=== PATIENT | male | born 1945 | race Caucasian/White ===

== ENCOUNTER → 2016-10-11 13:59 | Outpatient (CLI) | payer MEDICARE, OTHER ==
[2012-04-09 06:16] VITALS: BMI 27.8
== END | disposition home or self-care (01) ==
LOC: D.MRI 13:59
DX: M25.562 Pain in left knee (principal); M25.552 Pain in left hip

== ENCOUNTER 2020-01-22 01:11 | Inpatient (IN) | payer MEDICARE, OTHER ==
[~2020-01-22] VITALS: Ht 182.9 cm; Wt 99.1 kg
[2020-01-22] VITALS (21 sets, daily range): BP systolic 137–194; BP diastolic 64–94; BMI 28.6
[2020-01-22 02:05] LABS: BASOPHILS 0.1 % (0-2); EOSINOPHILS 0 % (0-7); HEMATOCRIT 37.9 % (42.0-54.0); HEMOGLOBIN 12.2 g/dL (13.5-17.5); IMMATURE GRANULOCYTES 2.1 % (0-5); LYMPHOCYTES 5.4 % (15-50); MCH 30.9 pg (26.0-34.0); MCHC 32.2 g/dL (31.0-37.0); MCV 95.9 fL (80.0-100.0); MONOCYTES 3.6 % (2-11); NEUTROPHILS 88.8 % (40-80); PLATELET COUNT 250 10x3/uL (130-400); RBC 3.95 10x6/uL (4.20-6.10); RDW 14.8 % (11.5-14.5); WBC 16.5 10x3/uL (4.8-10.8)
[2020-01-22 02:09] LABS: CALC OSMOLALITY 293 mosm/kg (275-300); CALCIUM 8.6 mg/dL (8.5-10.1); CARBON DIOXIDE 21.2 mmol/L (21.0-32.0); CHLORIDE - SERUM 103 mmol/L (98-107); CREATININE - SERUM 2.5 mg/dL (0.6-1.3); INR 0.89 (0.85-1.17); SODIUM 137 mmol/L (136-145); UREA NITROGEN 58 mg/dL (7-18); eGFR NON AFRICAN AMERICAN 27 mL/min (90-120)
[2020-01-22 02:12] LABS: GLUCOSE 162 mg/dL (74-106)
[2020-01-22 02:18] LABS: ALBUMIN 3.9 g/dL (3.4-5.0); ALKALINE PHOSPHATASE 100 U/L (30-120); ALT (SGPT) 28 U/L (10-68); CREATINE KINASE 136 UL (21-232); PROTEIN - SERUM 7.4 g/dL (6.4-8.2); TROPONIN-I < 0.017 ng/mL (0.000-0.060)
--- NOTE | 2020-01-22 07:10 | NUR ---
PT VOMITED ON FLOOR IN PT ROOM. EDP AWARE. PT SPOUSE AT BEDSIDE.
--- NOTE | 2020-01-22 07:50 | NUR ---
REPORT RECIEVED FROM ER. PT ARRIVED TO UNIT TO ROOM 2310 VIA STRETCHER ACCOMPANIED BY ER STAFF. VSS. AT BEDSIDE, NEW ORDERS RECEIVED. AT BEDSIDE FOR HISTORIAN SINCE PT IS CONFUSED. WILL CONT TO MONITOR.
--- NOTE | 2020-01-22 09:00 | NUR ---
AT BEDSIDE. VSS. WILL CONT TO MONITOR.
--- NOTE | 2020-01-22 09:49 | NUR ---
DUFFY INSERTED PER ORDERS, 300ML OF CLEAR YELLOW URINE NOTED. ALSO, MANNITOL STARTED PER ORDER. WILL ASSESS FOR URINE DUMP. WILL CONT TO MONITOR.
--- NOTE | 2020-01-22 11:00 | NUR ---
REASSESSMENT COMPLETED PER FLOWSHEET, SEE FLOWSHEET FOR INFORMATION. VSS. HYDRALIZINE GIVEN PER EMAR. PT C/O OF "A HEADACHE RIGHT BEHIND MY EYES", PT ALSO STATES "MY EARS ARE STOPPED UP" AND CONTINUES TO HOLD HIS NOSE AND TRY TO CLEAR HIS EARS. REINFORCED IMPORTANCE TO NOT DO THAT DUE TO INCREASE IN ICP. WILL CONT TO MONITOR.
[2020-01-22] MEDS ORDERED: STERAPRED DS 1210 MG (12:34)
[2020-01-22] MEDS ORDERED: ZANAFLEX4 MG (12:35)
[2020-01-22] MEDS ORDERED: COZAAR100 MG (12:36)
[2020-01-22] MEDS ORDERED: OMEPRAZOLE (12:36)
[2020-01-22] MEDS ORDERED: MAXZIDE 75/501 TAB (12:37)
[2020-01-22] MEDS ORDERED: OMEPRAZOLE DR 20 MG (12:37)
--- NOTE | 2020-01-22 13:00 | NUR ---
PT RESTING IN BED WITH EYES CLOSED. PT C/O HEADACHE AND BACKACHE. MORPHINE 2MG GIVEN. WILL CONT TO MONITOR.
--- NOTE | 2020-01-22 15:00 | NUR ---
REASSESSMENT COMPLETED PER FLOWSHEET, SEE FLOWSHEET FOR INFORMATION. VSS. PT RESTING IN BED WITH EYES CLOSED. PAIN MEDICATION GIVEN PER REQUEST PER EMAR. WILL CONT TO MONITOR.
--- NOTE | 2020-01-22 17:00 | NUR ---
PT STATED "I FEEL LIKE IM GOING TO THROW UP" EMESIS BAG GIVEN THEN SAT PT UP, PT STATES "DON'T DO THAT, IT HURTS MY STOMACH." INFORMED PT THAT IF HE WAS GOING TO THROW UP HE NEEDED TO DO SO SITTING UP NOT TO ASPIRATE ON IT, PT THEN STATED "WELL, I DON'T HAVE TO THROW UP ANYMORE. LET ME LAY BACK." LAID HOB TO 45 DEGREES. PT STATES "THAT'S MUCH BETTET. THANK YOU" WILL CONT TO MONITOR.
--- NOTE | 2020-01-22 21:30 | NUR ---
PASTOR ORDONEZ (PT'S PERSONAL CALCULATING MACHINE OPERATOR) IN ROOM TO TAKE CARE OF GNOSTICIST NEEDS.
--- NOTE | 2020-01-22 23:15 | NUR ---
PRN PO TYLENOL AND MORPHINE 2MG ADMINISTERED VIA SIVP PER PT REQUEST/MD ORDER FOR C/O TRIVEDI 7/10 ON PAIN SCALE.
[2020-01-23] VITALS (24 sets, daily range): BP systolic 143–187; BP diastolic 67–96
[2020-01-23 04:39] LABS: BASOPHILS 0 % (0-2); EOSINOPHILS 0.6 % (0-7); HEMATOCRIT 34.1 % (42.0-54.0); LYMPHOCYTES 2.2 % (15-50); MCH 30.9 pg (26.0-34.0); MCHC 32.3 g/dL (31.0-37.0); MCV 95.8 fL (80.0-100.0); MEAN PLATELET VOLUME 9.3 fL (7.4-10.4); MONOCYTES 6.7 % (2-11); NEUTROPHILS 89.5 % (40-80); RBC 3.56 10x6/uL (4.20-6.10); RDW 15.2 % (11.5-14.5); WBC 14.4 10x3/uL (4.8-10.8)
[2020-01-23 04:44] LABS: PLATELET COUNT 180 10x3/uL (130-400)
[2020-01-23 04:55] LABS: ANION GAP 12.3 mmol/L (8-16); BILIRUBIN - TOTAL 0.59 mg/dL (0.2-1.3); CARBON DIOXIDE 23.4 mmol/L (21.0-32.0); POTASSIUM - SERUM 3.7 mmol/L (3.5-5.1); PROTEIN - SERUM 6.3 g/dL (6.4-8.2)
--- NOTE | 2020-01-23 05:16 | NUR ---
NO VISITORS PRESENT AT THIS TIME, PT RESTING IN BED WITH EYES CLOSED, BP WITHIN PARAMETERS, CONT TO MONITOR.
--- NOTE | 2020-01-23 07:00 | NUR ---
BEDSIDE REPORT RECEIVED. SHIFT ASSESSMENT COMPLETED PER FLOWSHEET, SEE FLOWSHEET FOR INFORMATION. PT STATES "I FEEL BETTER TODAY, MY HEAD DOESN'T HURT MUCH IT DID YESTERDAY." PT IN BED RESTING WATCHING TV. NO ACUTE NEEDS OR DISTRESS NOTED AT THIS TIME. VSS. WILL CONT TO MONITOR.
--- NOTE | 2020-01-23 09:00 | NUR ---
AT BEDSIDE. UPDADTE GIVEN. NO ACUTE NEEDS OR DISTRESS NOTED AT THIS TIME. VSS. WILL CONT TO MONITOR.
--- NOTE | 2020-01-23 11:00 | NUR ---
REASSESSMENT COMPLETED PER FLOWSHEET, SEE FLOWSHEET FOR INFORMATION. AT BEDSIDE. VSS. WILL CONT TO MONITOR.
--- NOTE | 2020-01-23 11:00 | NUR ---
REASSESSMENT COMPLETED PER FLOWSHEET, SEE FLOWSHEET FOR INFORMATION. NO ACUTE NEEDS OR DISTRESS NOTED AT THIS TIME. AT BEDSIDE, NEW ORDERS RECEIVED. WILL CONT TO MONITOR.
--- NOTE | 2020-01-23 13:00 | NUR ---
CHG BEDBATH GIVEN, COMPLETE LINEN CHANGED. FINALLY MANNITOL DECRYSTALIZED IN BLANKET WARMER, READY TO BE GIVEN WITH IVF WARMER. PT UP TO CHAIR WITH MINIMAL ASSISTANCE. WILL CONT TO MONITOR.
--- NOTE | 2020-01-23 15:00 | NUR ---
REASSESSMENT COMPLETED PER FLOWSHEET, SEE FLOWSHEET FOR INFORMATION. PT DENIES ANY ACUTE NEEDS OR DISTRESS AT THIS TIME. WILL CONT TO MONITOR.
--- NOTE | 2020-01-23 15:49 | NUR ---
PAGED , NEW ORDERS RECEIVED. WILL CONT TO MONITOR.
--- NOTE | 2020-01-23 17:00 | NUR ---
PT IN CHAIR RESTING WITH EYES CLOSED. CHANGED BUE DRESSINGS, AND HEAD DRESSING. NO ACUTE NEEDS OR DISTRESS NOTED AT THIS TIME. VSS. WILL CONT TO MONITOR.
[2020-01-24] VITALS (24 sets, daily range): BP systolic 128–195; BP diastolic 70–99; BMI 29.3
[2020-01-24 04:08] LABS: BASOPHILS 0 % (0-2); EOSINOPHILS 0.2 % (0-7); HEMATOCRIT 35.7 % (42.0-54.0); HEMOGLOBIN 11.6 g/dL (13.5-17.5); LYMPHOCYTES 3.3 % (15-50); MCH 31.3 pg (26.0-34.0); MCHC 32.5 g/dL (31.0-37.0); MCV 96.2 fL (80.0-100.0); MEAN PLATELET VOLUME 9.4 fL (7.4-10.4); MONOCYTES 6.8 % (2-11); NEUTROPHILS 88.7 % (40-80); PLATELET COUNT 181 10x3/uL (130-400); RBC 3.71 10x6/uL (4.20-6.10); RDW 15.3 % (11.5-14.5); WBC 12.6 10x3/uL (4.8-10.8)
[2020-01-24 04:22] LABS: ALBUMIN 2.9 g/dL (3.4-5.0); BILIRUBIN - TOTAL 0.41 mg/dL (0.2-1.3); CALCIUM 8.5 mg/dL (8.5-10.1); CREATININE - SERUM 2.1 mg/dL (0.6-1.3); PROTEIN - SERUM 6.6 g/dL (6.4-8.2)
[2020-01-24 04:30] LABS: ANION GAP 9.6 mmol/L (8-16); CARBON DIOXIDE 29.4 mmol/L (21.0-32.0)
--- NOTE | 2020-01-24 07:00 | NUR ---
ASSESSMENT COMPLETE PER FLOWSHEET. VOICES NO CO AT TIME.
--- NOTE | 2020-01-24 16:05 | NUR ---
OT NOTE: PT COMPLETED SUPINE TO SIT WITH MIN A. PT COMPLETED EOB SITTING WITH CGA/MIN A. PT COMPELETED FACE HYGIENE WITH SETUP AT EOB. [id number] THANK YOU,CARSON NOVAK
--- NOTE | 2020-01-24 20:37 | NUR ---
patient requests head dressing to be changed. stated we can do that for him. patient on room air. see assessment. see adls
[2020-01-25] VITALS (24 sets, daily range): BP systolic 113–184; BP diastolic 69–93; Ht 182.9 cm; Wt 99.1 kg
--- NOTE | 2020-01-25 03:33 | NUR ---
patient sleeping. will continue to monitor
[2020-01-25 04:23] LABS: BASOPHILS 0.1 % (0-2); EOSINOPHILS 0.6 % (0-7); HEMATOCRIT 34.4 % (42.0-54.0); HEMOGLOBIN 10.9 g/dL (13.5-17.5); IMMATURE GRANULOCYTES 0.7 % (0-5); LYMPHOCYTES 5.2 % (15-50); MCH 30.7 pg (26.0-34.0); MCHC 31.7 g/dL (31.0-37.0); MCV 96.9 fL (80.0-100.0); MEAN PLATELET VOLUME 9.3 fL (7.4-10.4); MONOCYTES 5.2 % (2-11); NEUTROPHILS 88.2 % (40-80); PLATELET COUNT 183 10x3/uL (130-400); RBC 3.55 10x6/uL (4.20-6.10); RDW 15.2 % (11.5-14.5); WBC 11.2 10x3/uL (4.8-10.8)
[2020-01-25 05:00] LABS: ALBUMIN 2.6 g/dL (3.4-5.0); ANION GAP 9.3 mmol/L (8-16); BILIRUBIN - TOTAL 0.41 mg/dL (0.2-1.3); CALCIUM 8.4 mg/dL (8.5-10.1); CARBON DIOXIDE 27.9 mmol/L (21.0-32.0); MAGNESIUM - SERUM 2.2 mg/dL (1.8-2.4); POTASSIUM - SERUM 3.2 mmol/L (3.5-5.1); PROTEIN - SERUM 6.1 g/dL (6.4-8.2)
--- NOTE | 2020-01-25 06:18 | NUR ---
potassium low. patient needs electrolyte protocl
--- NOTE | 2020-01-25 07:00 | NUR ---
ASSESSMENT COMPLETE PER FLOWSHEET. VOICES NO CO AT TIME.
--- NOTE | 2020-01-25 10:56 | NUR ---
UP AMBULATING WITH PHYSICAL THERAPY.
--- NOTE | 2020-01-25 15:02 | NUR ---
OT NOTE: BED MOB WITH SPV; SIT TO STAND WITH WALKER WITH CGA; IN ROOM AMB WITH USE OF WALKER WITH MIN/CGA. TOLERATED SITTING UP IN CHAIR WITHOUT DIFFICULTY. ABLE TO PERFORM SIMPLE GROOMING TASKS WITH SET UP FROM CHAIR LEVEL. LUIS GRAVES, OTR/L [phone]
--- NOTE | 2020-01-25 15:06 | NUR ---
CONTINUE TO SIT UP IN CHAIR NO CO AT TIME.
--- NOTE | 2020-01-25 15:41 | NUR ---
PT REFUSED BATH.
--- NOTE | 2020-01-25 16:46 | NUR ---
OT NOTE: PT COMPLETED SIT TO STAND WITH SBA/CGA. PT COMPLETED SITTING BALANCE WITH SBA. PT COMPLETED UE EXERCISES TOLERATED. [phone] THANK YOU,CARSON NOVAK
--- NOTE | 2020-01-25 19:10 | NUR ---
RECIVED BEDSIDE SHIFT RERPORT. PT IS A&OX4 SITTING UP IN BEDSIDE CHAIR. HIS VSS. DUFFY OBSERVED DRAINGNG BY GRAVITY. IV IN LEFT HAND IS CDI. FULL ASSESSMENT DONE AND WILL DOC IN FLOW SHEET. CHAIR IS LOCKED, CALL LIGHT IS BY SIDE. HE VOICES UNDERSTANDING TO USE CALL LIGHT IF NEED ASSISTNACE BEFORE GETTING UP. WILL CONITNUE TO MONITOR
--- NOTE | 2020-01-25 20:00 | NUR ---
PT IS SITTING UP IN CHAIR WITH EYES CLOSED. AWAKES EASILY. HE IS A&OX4, VOICES NO NEEDS OR C/O AT THIS TIME. VSS. CHAIR IS LOCKED, CALL LIGHT WITHIN REACH.
--- NOTE | 2020-01-25 22:05 | NUR ---
PT IS SITTING UP IN CHAIR AWAKE A&OX4. HE ASK IF I CAN TAKE A PICTURE OF THE BACK OF HIS HEAD. I TOOK OFF OLD DRESSING WHICH HAD NO DRAINAGE. THERE ARE TWO QUETA AND THE INJURED AREA IS SCABED OVER. TOOK PICUTRE WITH PT PHONE WITH HIS VERBAL PERMISSION. LEFT OPEN TO AIR. HE HAD NO OTHER REQUEST OR NEEDS. VSS. BED IS LOW,SIDE RAILSX2,CALL LIGHT WITHIN REACH.
--- NOTE | 2020-01-25 23:00 | NUR ---
PT USED CALL LIGHT AND VOICED"I WOULD LIKE TO LAY DOWN". STOOD BY ASSIST FOR PT SAFETLY TO BED. ALL THINGS SITUATED FOR COMFORT. PROVIDED PT HIS DENTURE CUP AND HE TOOK OUT HIS DENTURES. I PUT WATER IN CUP REQUESTED. NO OTHER NEEDS OR CONCERNS VOICED. PT TRIVEDI HAS IMPORVED. VSS. RE-ASSESSMENT DONE AT THIS TIME AND WILL DOC IN FLOW SHEET. BED IS LOW,SIDE RAISLX2,CALL LIGHT WITHIN REACH. WILL CONTINUE TO MONITOR
[2020-01-26] VITALS (19 sets, daily range): BP systolic 129–162; BP diastolic 58–87
--- NOTE | 2020-01-26 01:00 | NUR ---
PT IS RESTING IN BED WITH EYES CLOSED. AWAKES EASILY. HE IS A&OX4, VVS. VOICES "IM GOOD". BED IS LOW,SIDE RAISXL2,CALL LIGHT WITHIN REACH. WILL CONTINUE TO MONITOR
--- NOTE | 2020-01-26 02:57 | NUR ---
PT IS RESTING IN BED WITH EYES CLOSED. VSS. WAKES UP EASILY. RE-ASSESSMENT DONE AND WILL DOC IN FLWOSHEET. VOICE"NO" TO PAIN. NO NEEDS OR C/O VOICED. BED IS LOW,SIDE RAISLX2,CALL LIGHT WITHIN REACH. WILL CONITNUE TO MONITOR
--- NOTE | 2020-01-26 04:00 | NUR ---
PT IS RESTING IN BED A&OX4, VOICES NO NEEDS. VSS. BED IS LOW,SIDE RAISLX2,CALL LIGHT WITHIN REACH. WILL CONITNUE TO MONITOR
[2020-01-26 04:31] LABS: BASOPHILS 0 % (0-2); EOSINOPHILS 2.2 % (0-7); HEMOGLOBIN 10.1 g/dL (13.5-17.5); IMMATURE GRANULOCYTES 0.6 % (0-5); LYMPHOCYTES 6.1 % (15-50); MCH 30.3 pg (26.0-34.0); MCHC 31.6 g/dL (31.0-37.0); MCV 96.1 fL (80.0-100.0); MEAN PLATELET VOLUME 8.9 fL (7.4-10.4); MONOCYTES 6.5 % (2-11); NEUTROPHILS 84.6 % (40-80); PLATELET COUNT 165 10x3/uL (130-400); RBC 3.33 10x6/uL (4.20-6.10); RDW 14.9 % (11.5-14.5)
[2020-01-26 04:37] LABS: WBC 7.8 10x3/uL (4.8-10.8)
[2020-01-26 04:48] LABS: ALBUMIN 2.5 g/dL (3.4-5.0); ANION GAP 9.3 mmol/L (8-16); BILIRUBIN - TOTAL 0.48 mg/dL (0.2-1.3); CALCIUM 8.2 mg/dL (8.5-10.1); CARBON DIOXIDE 28.5 mmol/L (21.0-32.0); PROTEIN - SERUM 5.7 g/dL (6.4-8.2)
[2020-01-26 05:04] LABS: POTASSIUM - SERUM 2.8 mmol/L (3.5-5.1)
--- NOTE | 2020-01-26 06:00 | NUR ---
PT IS RESTING IN BED WITH EYES CLSOED, AWAKENS EAISLY. IS A&OX4, VSS. VOICES "CAN I HAVE ANOTHER TYLENOL?". SCANNED ON SEP AND ADMINSITERED PRN. PT VOICED NO OTHER NEEDS AT THIS TIME. BED IS LEFT LOW,SIDE RAISLX2,CALL LIGHT WITHIN REACH. WILL CONTNIUE TO MONITOR
--- NOTE | 2020-01-26 14:12 | NUR ---
Nutrition Follow-up: Being followed by CABIN WORKER. ST recommends [facility] Soft diet at this time. Possible diet upgrade upon next ST follow-up per notes. Diet: Regular [facility] Soft PO intake: none recorded. Patient states that his appetite is "normal." He will order Ensure on his meal trays. Last BM: none recorded since admit. WT: 218# (01/26/20); Admit wt: 210#(01/22/20) Meds reviewed. Labs noted: K 3.3(L), BUN 39(H), Cr 2.0(H), GFR 35(L), Glu 118 Recommend continue current diet. Patient to order Ensure as needed. RD following.
--- NOTE | 2020-01-26 15:35 | NUR ---
OT NOTE: PT PERFORMED WELL TODAY; TOILET TRANSFERS WITH SBA/CGA; HYGIENE AND GROOMING WITH SET UP/MIN ASSIST; AMB WITH AND WITHOUT USE OF WALKER; PT AMB WITH WALKER WITH SBA..REQUIRES CUSTOMER ACCOUNT MANAGER WITH NO AD.. REMAINS SLIGHTLY UNSTEADY WITH DYNAMIC BALANCE TASKS, HOWEVER, STATIC STANDING BALANCE IS GOOD. LUIS GRAVES, OTR/L [phone]
--- NOTE | 2020-01-27 01:32 | NUR ---
RECEIVED TO FLOOR, ACCOMPANIED BY STAFF. A&O X 4. AMBULATED TO BED IN ROOM. DUFFY IN PLACE. MEPILEX TO BILAT ELBOWS. RIGHT EYE IS BRUISED AND SCLERA IS RED. NO PAIN REPORTED. CTM.
--- NOTE | 2020-01-27 03:16 | NUR ---
PT REFUSES TO KEEP HOB AT 30 DEGREES. INFORMED OF RISK OF INCREASED ICP, PT STILL REFUSES STATING HE CANNOT SLEEP WITH THE BED THIS HIGH, HIS LAST BED WAS LOWER, BUT IT APPEARED TO BE THE SAME WHEN TRANSFERRING. (BED READING ON SIDERAIL WAS EXACTLY 30DEGRESS BEFORE PT LOWERED.)
[2020-01-27 04:00] VITALS: BP 149/67
--- NOTE | 2020-01-27 04:48 | NUR ---
APPEARS TO BE RESTING COMFORTABLY, HOB 30DEGREES. EYES CLOSED, RESPIRATIONS EVEN/NONLABORED.
--- NOTE | 2020-01-27 06:03 | NUR ---
PT REPORTS BACK PAIN AND DULL ACHE TO QUETA IN BACK OF HEAD, RATED AT 2/10. CDI, CONTINUE PLAN OF CARE.
[2020-01-27 06:42] LABS: BASOPHILS 0 % (0-2); EOSINOPHILS 2.1 % (0-7); HEMATOCRIT 31.1 % (42.0-54.0); HEMOGLOBIN 9.8 g/dL (13.5-17.5); IMMATURE GRANULOCYTES 0.7 % (0-5); LYMPHOCYTES 8.9 % (15-50); MCH 30.4 pg (26.0-34.0); MCHC 31.5 g/dL (31.0-37.0); MCV 96.6 fL (80.0-100.0); MEAN PLATELET VOLUME 9.1 fL (7.4-10.4); MONOCYTES 7.6 % (2-11); NEUTROPHILS 80.7 % (40-80); PLATELET COUNT 166 10x3/uL (130-400); RBC 3.22 10x6/uL (4.20-6.10); RDW 14.6 % (11.5-14.5); WBC 6.7 10x3/uL (4.8-10.8)
[2020-01-27 06:57] LABS: ALBUMIN 2.5 g/dL (3.4-5.0); ANION GAP 10.5 mmol/L (8-16); BILIRUBIN - TOTAL 0.51 mg/dL (0.2-1.3); CALCIUM 8.5 mg/dL (8.5-10.1); CARBON DIOXIDE 29.3 mmol/L (21.0-32.0); CREATININE - SERUM 1.9 mg/dL (0.6-1.3); PROTEIN - SERUM 5.6 g/dL (6.4-8.2)
[2020-01-27 06:59] LABS: POTASSIUM - SERUM 2.8 mmol/L (3.5-5.1)
--- NOTE | 2020-01-27 08:32 | NUR ---
PATIENT LAYING ON RIGHT SIDE. ROLLED TO BACK SO I CAN DO MY SHIFT ASSESSMENT. NEURO CHECKS COMPLETED. NO FURTHER NEEDS AT THIS TIME BESIDES "IT IS TO EARLY TO EAT BREAKFAST." "LET HIM REST." CL IN REACH. WCTM
[2020-01-27 09:00] VITALS: BP 155/72
--- NOTE | 2020-01-27 12:31 | NUR ---
OT NOTE: PT REQUESTING TO GO TO BATHROOM..PT IS QUITE AGITATED AND REPORTS THAT HE IS NOW "BACK TO NORMAL" ..BED MOB WITHOUT ASSIST; AMB TO BATHROOM WITH MIN ASSIST AND NO AD..UNSTEADY WITH GAIT; TOILET HYGIENE WITH MOD ASSIST; IN ROOM AMBULATION WITH MIN ASSIST WITHOUT DEVICE..AMB IN HALLWAY WITH WALKER AND SBA..INFORMED PATIENT AND THAT HE MAY REQUIRE USE OF WALKER FOR A WHILE UNTIL HE IS MORE STEADY WITH AMB.. THEY ARE BOTH IN AGREEMENT; BYRD AMB WITH PT FOR STRENGTH AND ENDURANCE..UPON RETURN PT TRANSFERRED TO CHAIR..REPORTS THAT BED HURTS HIS BACK LUIS GRAVES, OTR/L [phone]
[2020-01-27 12:57] VITALS: BP 146/74
--- NOTE | 2020-01-27 16:18 | NUR ---
Rehab Note- Acute Inpatient REhab prescreen order received. Currently we have no beds avaliable at this time. Thank you for this referral! Lilia Scott RN Clinical Liaison, [facility] Rehab
--- NOTE | 2020-01-27 16:26 | NUR ---
ICE PACK GIVEN FOR PATIENT HEADACHE. IN ROOM. UP IN CHAIR. CL IN REACH. WCTM
[2020-01-27 16:53] VITALS: BP 132/79
--- NOTE | 2020-01-27 18:42 | NUR ---
PATIENT STATES HE IS READY TO SEE DR BUCKNER AND THAT HE HAD SAID HE WOULD BE AROUND. I CALLED DR BUCKNER TO SEE IF HE WAS COMING BY. PATIENT WANTED TO KNOW CT RESULTS. I INFORMED PATIENT THAT CT RESULTS SHOWED THAT HE WAS IMPROVING. THAT WE WERE THINKING REHAB. PATIENT STATES THAT HE JUST WANTS TO GO HOME. QUESTIONS ABOUT HOW LONG REHAB WILL TAKE. I WAS UNABLE TO ASK. CL IN REACH. PATIENT IN CHAIR. TM
[2020-01-27 20:00] VITALS: BP 140/75
[2020-01-28] VITALS: BP 145/55
--- NOTE | 2020-01-28 00:34 | NUR ---
I have reviewed this patient and I concur with the Shift Assessment completed by the Licensed Practical Nurse today this shift.
--- NOTE | 2020-01-28 06:02 | NUR ---
OT NOTE: (DOS 01/27/2020) PT COMPLETED SUPINE TO SIT WITH SPV/MOD I. PT COMPLETED ADL MOB WITH RW WITH SPV/MOD I. PT COMPLETED TOILETING HYGIENE WITH TOTAL A SECONDARY TO GRAVITATIONAL INSECURITY. PT COMPLETED HAND HYGIENE AT SINK LEVEL WITH SPV/MOD I. PT EXHIBITED INCREASED INDEPENDENCE WITH FUNCTIONAL MOBILITY. [phone] THANK YOU,CARSON NOVAK
[2020-01-28 06:39] LABS: BASOPHILS 0 % (0-2); EOSINOPHILS 2.4 % (0-7); HEMATOCRIT 30.9 % (42.0-54.0); HEMOGLOBIN 9.8 g/dL (13.5-17.5); IMMATURE GRANULOCYTES 0.8 % (0-5); LYMPHOCYTES 6.8 % (15-50); MCH 30.8 pg (26.0-34.0); MCHC 31.7 g/dL (31.0-37.0); MCV 97.2 fL (80.0-100.0); MONOCYTES 6.8 % (2-11); NEUTROPHILS 83.2 % (40-80); PLATELET COUNT 170 10x3/uL (130-400); RBC 3.18 10x6/uL (4.20-6.10); RDW 14.3 % (11.5-14.5); WBC 6.6 10x3/uL (4.8-10.8)
[2020-01-28 06:45] LABS: ANION GAP 7.2 mmol/L (8-16); CALCIUM 8.2 mg/dL (8.5-10.1); CARBON DIOXIDE 31.6 mmol/L (21.0-32.0); CREATININE - SERUM 1.7 mg/dL (0.6-1.3); MAGNESIUM - SERUM 2.2 mg/dL (1.8-2.4); PHOSPHOROUS 2.5 mg/dL (2.5-4.9)
[2020-01-28 06:47] LABS: POTASSIUM - SERUM 3.8 mmol/L (3.5-5.1)
--- NOTE | 2020-01-28 08:58 | NUR ---
PATIENT ASSISTED FROM BED TO BATHROOM TO CHAIR. MINIMAL ASSIST. PATIENT WOULD LIKE DUFFY REMOVED. WILL ASK DR. CHAN IN REACH. TM
[2020-01-28 09:30] VITALS: BP 169/84
--- NOTE | 2020-01-28 09:42 | NUR ---
OFFERED BLADDER TRAINING. REFUSED STATED HE HAS HAD THEM BEFORE AND WAS ABLE TO VOID SOON AFTER REMOVAL. SUCH HE IS IN THE BATHROOM AT THIS TIME. STAT LOCK REMOVED WITH ALCOHOL. DUFFY REMOVED. 8.6 ML REMOVED FROM BALLOON. TOLERATED WELL. WILL NOTIFY ME WHEN READY TO LEAVE THE BATHROOM. XU IN ROOM. [facility]
--- NOTE | 2020-01-28 10:55 | NUR ---
PATIENT SIGNED CHAIR AND BED REFUSAL FORM. EXPLAINED THAT IF HE WERE TO FALL INSURANCE WOULD NOT COVER THE COSTS. ALSO, EXPLAINED THAT IF HE USED HIS CL I WOULD COME AND ASSIST STILL. PATIENT IS STABLE WALKING EVEN WITHOUT WALKER THAT I PROVIDED. HE ALSO STANDS A MINUTE TO GAIN HIS BEARINGS. ALERT AND COMPLETELY ORIENTED. CL IN REACH. TM
--- NOTE | 2020-01-28 11:11 | NUR ---
Reviewed patient's chart for the ARU and discussed in the IDT meeting. He wants to go home and has ambulated 500 ft with no assist. He is to high level for the ARU. Recommend home with HH. Claire Mendez RN Clinical Liaison, Rehab
--- NOTE | 2020-01-28 12:34 | MORECARE ---
CASE MANAGEMENT DISCHARGE SUMMARY PATIENT: BRENT ORDONEZ UNIT: [id number] ADM DATE: 01/22/20 AGE: 74 : [birth year] SEX: M ROOM/BED: D.2211 AUTHOR: DILLON ANDERSON PHYSICIAN: REFERRING PHYSICIAN: RAJ TOWNSEND DO DATE OF SERVICE: 01/28/20 Discharge Plan Patient Name: BRENT ORDONEZ Facility: [facility]:[place] : 1945 Planned Disposition: Anticipated Discharge Date: Discharge Date: Expected LOS: Initial Reviewer: [id number] Initial Review Date: 01/28/2020 Generated: 01/28/20 1:34 pm Comments DCP- Discharge Planning Updated by [id number]: Ambar Wallace on 01/28/20 11:[address] Patient Name: BRENT ORDONEZ Admission Status: ER Accout number: [id number] Admission Date: 01-22-2020 : 1945 Admission Diagnosis:FRACTURE OF BASE OF SKULL, UNSPECIFIED SIDE, INIT Attending: RAJ TOWNSEND Current LOS: 6 Anticipated DC Date: Planned Disposition: Primary Insurance: MEDICARE A & B Discharge Planning Comments: CM met with patient at bedside after explaining CM role and obtaining verbal consent. CM discussed availability / needs of home health, REHAB and medical equipment. STATES WILL NEED A WALKER AND HOME HEALTH. SULEMA SIGNED FOR [employer] AND DME AT [facility]. I WILL FAX ORDERS TO BOTH PLACES. IMM SIGNED. HE WILL CALL FOR TRANSPORT HOME WHEN DISCHARGED. CM TO FOLLOW AND ASSIST NEEDED. Track Laying Equipment Operator: Ambar Wallace External Providers [facility] Next Contact Date: Service Request Date: Service Type: Resolution: Reviewer: Comments: External Provider: [facility] Next Contact Date: Service Request Date: Service Type: Resolution: Reviewer: Comments: Coverage Notice Reviewer: [id number] Gurmeet Wallace Notice Issued Date-Time: 01/28/2020 12:24 Notice Type: IM Discharge Notice Notice Delivered To: Patient Relationship to Patient: Cyanide Pot Tender Name: Delivery Method: HAND - Hand Delivered Linda Days: Prior Verbal Notification: Recipient Understood Notice: Yes Recipient Signature: Yes Med Rec Note Co-signed by Attending: Coverage Notice Comment: Reviewer: [id number] Gurmeet Wallace Notice Issued Date-Time: 01/28/2020 12:24 Notice Type: Patient Choice Letter Notice Delivered To: Relationship to Patient: Cyanide Pot Tender Name: Delivery Method: HAND - Hand Delivered Linda Days: Prior Verbal Notification: Recipient Understood Notice: Yes Recipient Signature: Yes Med Rec Note Co-signed by Attending: Coverage Notice Comment: [facility]. D[facility] Patient Name: BRENT ORDONEZ Page [phone] at 1234 All edits/amendments must be made on the electronic document DICTATION DATE: 01/28/20 1234 READING TEACHER: KENDALL 01/28/20 1234 RPT#: [id number] DC DATE: STATUS: ADM IN [facility] [address] [place] [address] END OF REPORT
[2020-01-28 12:51] VITALS: BP 142/76
--- NOTE | 2020-01-28 13:00 | NUR ---
OT NOTE: PT CURRENTLY SITTING UP IN CHAIR; NUMEROUS C/O BACK PAIN DUE TO CHAIR AND BED. ABLE TO AMB IN ROOM SAFELY WITH WALKER TO AND FROM BATHROOM; ABLE TO MANEUVER WALKER THROUGH SMALL AREA OF SPACE IN ROOM. PT SLIGHTLY AGITATED. SINK HYGIENE WITH USE OF WALKER. PT WANTING TO GO HOME LAN SO THAT HE CAN GET COMFORTABLE. D/W NURSING AND ATTEMPTED TO CONTACT REHAB PT IS TOO HIGH LEVEL TO QUALIFY FOR IP REHAB, HOWEVER, HE WOULD BENEFIT FROM HH SERVICES. PT WILL ALSO NEED A WALKER FOR DC HOME LUIS GRAVES, OTR/L [phone]
--- NOTE | 2020-01-28 13:21 | NUR ---
NEW SOCKS PROVIDED. PATIENT STATED THEY WERE GOING TO LET HIM OUT OF HERE TODAY. CL IN REACH. WCTM
--- NOTE | 2020-01-28 14:56 | NUR ---
DISCHARGE INSTRUCTIONS GIVEN. PATIENT VERBALIZED UNDERSTANDING. WAITING ON TO ARRIVE TO GET DRESSED AND LEAVE.
--- NOTE | 2020-01-28 15:38 | MORECARE ---
CASE MANAGEMENT DISCHARGE SUMMARY PATIENT: BRENT ORDONEZ UNIT: [id number] ADM DATE: 01/22/20 AGE: 74 : 47 SEX: M ROOM/BED: D.2211 AUTHOR: DILLON ANDERSON PHYSICIAN: REFERRING PHYSICIAN: RAJ TOWNSEND DO DATE OF SERVICE: 01/28/20 Discharge Plan Patient Name: BRENT ORDONEZ Facility: [facility]:[place] : 1945 Planned Disposition: Anticipated Discharge Date: Discharge Date: Expected LOS: Initial Reviewer: [id number] Initial Review Date: 01/28/2020 Generated: 01/28/20 4:37 pm Comments DCP- Discharge Planning Updated by [email or web address]: Ambar Wallace on 01/28/20 11:[address] Patient Name: BRENT ORDONEZ Admission Status: ER Accout number: [id number] Admission Date: 01-22-2020 : 1945 Admission Diagnosis:FRACTURE OF BASE OF SKULL, UNSPECIFIED SIDE, INIT Attending: RAJ TOWNSEND Current LOS: 6 Anticipated DC Date: Planned Disposition: Primary Insurance: MEDICARE A & B Discharge Planning Comments: CM met with patient at bedside after explaining CM role and obtaining verbal consent. CM discussed availability / needs of home health, REHAB and medical equipment. STATES WILL NEED A WALKER AND HOME HEALTH. SULEMA SIGNED FOR [facility] AND DME AT [facility]. I WILL FAX ORDERS TO BOTH PLACES. IMM SIGNED. HE WILL CALL FOR TRANSPORT HOME WHEN DISCHARGED. CM TO FOLLOW AND ASSIST NEEDED. It Security Administrator: Ambar Wallace External Providers External Provider: Kristine Next Contact Date: Service Request Date: Service Type: Resolution: Reviewer: Comments: Coverage Notice Reviewer: [id number] Gurmeet Wallace Notice Issued Date-Time: 01/28/2020 12:24 Notice Type: IM Discharge Notice Notice Delivered To: Patient Relationship to Patient: Auxiliary Operator Name: Delivery Method: HAND - Hand Delivered Linda Days: Prior Verbal Notification: Recipient Understood Notice: Yes Recipient Signature: Yes Med Rec Note Co-signed by Attending: Coverage Notice Comment: Reviewer: [id number] Gurmeet Wallace Notice Issued Date-Time: 01/28/2020 12:24 Notice Type: Patient Choice Letter Notice Delivered To: Relationship to Patient: Auxiliary Operator Name: Delivery Method: HAND - Hand Delivered Linda Days: Prior Verbal Notification: Recipient Understood Notice: Yes Recipient Signature: Yes Med Rec Note Co-signed by Attending: Coverage Notice Comment: [facility]. D[facility] Last DP export: 01/28/20 11:34 am Patient Name: BRENT ORDONEZ Page [phone] at 1538 All edits/amendments must be made on the electronic document DICTATION DATE: 01/28/20 1537 DEPOSIT REFUND CLERK: KENDALL 01/28/20 1537 RPT#: [id number] DC DATE: STATUS: ADM IN [facility] [address] [place] [address] END OF REPORT
--- NOTE | 2020-01-28 16:00 | MORECARE ---
CASE MANAGEMENT DISCHARGE SUMMARY PATIENT: BRENT ORDONEZ UNIT: [id number] ADM DATE: 01/22/20 AGE: 74 : [birth year] SEX: M ROOM/BED: D.2211 AUTHOR: DILLON ANDERSON PHYSICIAN: REFERRING PHYSICIAN: RAJ TOWNSEND DO DATE OF SERVICE: 01/28/20 Discharge Plan Patient Name: BRENT ORDONEZ Facility: [facility]:[place] : 1945 Planned Disposition: Anticipated Discharge Date: Discharge Date: Expected LOS: Initial Reviewer: [email or web address] Initial Review Date: 01/28/2020 Generated: 01/28/20 4:59 pm Comments DCP- Discharge Planning Updated by [email or web address]: Ambar Wallace on 01/28/20 11:[address] Patient Name: BRENT ORDONEZ Admission Status: ER Accout number: [id number] Admission Date: 01-22-2020 : 1945 Admission Diagnosis:FRACTURE OF BASE OF SKULL, UNSPECIFIED SIDE, INIT Attending: RAJ TOWNSEND Current LOS: 6 Anticipated DC Date: Planned Disposition: Primary Insurance: MEDICARE A & B Discharge Planning Comments: CM met with patient at bedside after explaining CM role and obtaining verbal consent. CM discussed availability / needs of home health, REHAB and medical equipment. STATES WILL NEED A WALKER AND HOME HEALTH. SULEMA SIGNED FOR [facility] AND DME AT [facility]. I WILL FAX ORDERS TO BOTH PLACES. IMM SIGNED. HE WILL CALL FOR TRANSPORT HOME WHEN DISCHARGED. CM TO FOLLOW AND ASSIST NEEDED. Cheesemaking Laborer: Ambar Wallace External Providers External Provider: [facility] Next Contact Date: Service Request Date: Service Type: Resolution: Reviewer: Comments: Coverage Notice Reviewer: [id number] Gurmeet Wallace Notice Issued Date-Time: 01/28/2020 12:24 Notice Type: IM Discharge Notice Notice Delivered To: Patient Relationship to Patient: Jet Wiper Name: Delivery Method: HAND - Hand Delivered Linda Days: Prior Verbal Notification: Recipient Understood Notice: Yes Recipient Signature: Yes Med Rec Note Co-signed by Attending: Coverage Notice Comment: Reviewer: [id number] Gurmeet Wallace Notice Issued Date-Time: 01/28/2020 12:24 Notice Type: Patient Choice Letter Notice Delivered To: Relationship to Patient: Jet Wiper Name: Delivery Method: HAND - Hand Delivered Linda Days: Prior Verbal Notification: Recipient Understood Notice: Yes Recipient Signature: Yes Med Rec Note Co-signed by Attending: Coverage Notice Comment: [facility]. D[facility] Last DP export: 01/28/20 2:38 pm Patient Name: BRENT ORDONEZ Page [phone] at 1600 All edits/amendments must be made on the electronic document DICTATION DATE: 01/28/20 1559 RN ON SITE: KENDALL 01/28/20 1559 RPT#: [id number] DC DATE: STATUS: ADM IN [facility] [address] [place] [address] END OF REPORT
--- NOTE | 2020-01-28 16:06 | MORECARE ---
CASE MANAGEMENT DISCHARGE SUMMARY PATIENT: BRENT ORDONEZ UNIT: [id number] ADM DATE: 01/22/20 AGE: 74 : [birth year] SEX: M ROOM/BED: D.2211 AUTHOR: JUSTINDOC PHYSICIAN: REFERRING PHYSICIAN: RAJ TOWNSEND DO DATE OF SERVICE: 01/28/20 Discharge Plan Patient Name: BRENT ORDONEZ Facility: [facility]:[place] : 1945 Planned Disposition: Anticipated Discharge Date: Discharge Date: Expected LOS: Initial Reviewer: [email or web address] Initial Review Date: 01/28/2020 Generated: 01/28/20 5:05 pm Comments DCP- Discharge Planning Updated by [email or web address]: Ambar Wallace on 01/28/20 3:[address] Patient Name: BRENT ORDONEZ Admission Status: ER Accout number: [id number] Admission Date: 01-22-2020 : 1945 Admission Diagnosis:FRACTURE OF BASE OF SKULL, UNSPECIFIED SIDE, INIT Attending: RAJ TOWNSEND Current LOS: 6 Anticipated DC Date: Planned Disposition: Primary Insurance: MEDICARE A & B Discharge Planning Comments: OTHER DME'S ARE OUT OF WALKERS. [facility] CONTACTED AND FAXED ORDER. JHONATAN CONSTANTINO [employer] IS CALLING PATIENT AND WILL GET WALKER SET UP FOR HIM. HE LIVES AT THE [facility]. Community Health Nurse Supervisor: Ambar Wallace DCP- Discharge Planning Updated by [email or web address]: Ambar Wallace on 01/28/20 11:[address] Patient Name: BRENT ORDONEZ Admission Status: ER Accout number: [id number] Admission Date: 01-22-2020 : 1945 Admission Diagnosis:FRACTURE OF BASE OF SKULL, UNSPECIFIED SIDE, INIT Attending: RAJ TOWNSEND Current LOS: 6 Anticipated DC Date: Planned Disposition: Primary Insurance: MEDICARE A & B Discharge Planning Comments: CM met with patient at bedside after explaining CM role and obtaining verbal consent. CM discussed availability / needs of home health, REHAB and medical equipment. STATES WILL NEED A WALKER AND HOME HEALTH. SULEMA SIGNED FOR [facility] AND DME AT [facility]. I WILL FAX ORDERS TO BOTH PLACES. IMM SIGNED. HE WILL CALL FOR TRANSPORT HOME WHEN DISCHARGED. CM TO FOLLOW AND ASSIST NEEDED. Community Health Nurse Supervisor: Ambar Wallace Coverage Notice Reviewer: [id number] - Ambarannemarie Wallace Notice Issued Date-Time: 01/28/2020 12:24 Notice Type: IM Discharge Notice Notice Delivered To: Patient Relationship to Patient: Service Rig Operator Name: Delivery Method: HAND - Hand Delivered Linda Days: Prior Verbal Notification: Recipient Understood Notice: Yes Recipient Signature: Yes Med Rec Note Co-signed by Attending: Coverage Notice Comment: Reviewer: [email or web address] Gurmeet Ambarannemarie Wallace Notice Issued Date-Time: 01/28/2020 12:24 Notice Type: Patient Choice Letter Notice Delivered To: Relationship to Patient: Service Rig Operator Name: Delivery Method: HAND - Hand Delivered Linda Days: Prior Verbal Notification: Recipient Understood Notice: Yes Recipient Signature: Yes Med Rec Note Co-signed by Attending: Coverage Notice Comment: [facility]/ [facility] 4. D[facility] Last DP export: 01/28/20 3:00 pm Patient Name: BRENT ORDONEZ Page [phone] at 1606 All edits/amendments must be made on the electronic document DICTATION DATE: 01/28/20 1606 CEMETERY MANAGER: KENDALL 01/28/20 1606 RPT#: [id number] DC DATE: STATUS: ADM IN [facility] [address] [place] [address] END OF REPORT
--- NOTE | 2020-01-29 09:10 | MORECARE ---
CASE MANAGEMENT DISCHARGE SUMMARY PATIENT: BRENT ORDONEZ UNIT: [id number] ADM DATE: 01/22/20 AGE: 74 : 47 SEX: M ROOM/BED: D.2211 AUTHOR: DILLON ANDERSON PHYSICIAN: REFERRING PHYSICIAN: RAJ TOWNSEND DO DATE OF SERVICE: 01/29/20 Discharge Plan Patient Name: BRENT ORDONEZ Facility: [facility]:[place] : 1945 Planned Disposition: Anticipated Discharge Date: Discharge Date: 01/28/2020 Expected LOS: Initial Reviewer: [email or web address] Initial Review Date: 01/28/2020 Generated: 01/29/20 10:10 am Comments DCP- Discharge Planning Updated by [email or web address]: Ambar Wallace on 01/28/20 3:[address] Patient Name: BRENT ORDONEZ Admission Status: ER Accout number: [id number] Admission Date: 01-22-2020 : 1945 Admission Diagnosis:FRACTURE OF BASE OF SKULL, UNSPECIFIED SIDE, INIT Attending: RAJ TOWNSEND Current LOS: 6 Anticipated DC Date: Planned Disposition: Primary Insurance: MEDICARE A & B Discharge Planning Comments: OTHER DME'S ARE OUT OF WALKERS. [employer] [place] CONTACTED AND FAXED ORDER. JHONATAN CONSTANTINO [employer] IS CALLING PATIENT AND WILL GET WALKER SET UP FOR HIM. HE LIV[facility] AT THE [facility]. Foundry Manager: Ambar Wallace DCP- Discharge Planning Updated by [email or web address]: Ambar Wallace on 01/28/20 11:[address] Patient Name: BRENT ORDONEZ Admission Status: ER Accout number: [id number] Admission Date: 01-22-2020 : 1945 Admission Diagnosis:FRACTURE OF BASE OF SKULL, UNSPECIFIED SIDE, INIT Attending: RAJ TOWNSEND Current LOS: 6 Anticipated DC Date: Planned Disposition: Primary Insurance: MEDICARE A & B Discharge Planning Comments: CM met with patient at bedside after explaining CM role and obtaining verbal consent. CM discussed availability / needs of home health, REHAB and medical equipment. STATES WILL NEED A WALKER AND HOME HEALTH. SULEMA SIGNED FOR [facility] AND HOME AND DME AT [facility]. I WILL FAX ORDERS TO BOTH PLACES. IMM SIGNED. HE WILL CALL FOR TRANSPORT HOME WHEN DISCHARGED. CM TO FOLLOW AND ASSIST NEEDED. Foundry Manager: Ambar Wallace Coverage Notice Reviewer: [id number] - Ambar Wallace Notice Issued Date-Time: 01/28/2020 12:24 Notice Type: IM Discharge Notice Notice Delivered To: Patient Relationship to Patient: Interventional Radiology Rn Name: Delivery Method: HAND - Hand Delivered Linda Days: Prior Verbal Notification: Recipient Understood Notice: Yes Recipient Signature: Yes Med Rec Note Co-signed by Attending: Coverage Notice Comment: Reviewer: [email or web address] Gurmeet Wallace Notice Issued Date-Time: 01/28/2020 12:24 Notice Type: Patient Choice Letter Notice Delivered To: Relationship to Patient: Interventional Radiology Rn Name: Delivery Method: HAND - Hand Delivered Linda Days: Prior Verbal Notification: Recipient Understood Notice: Yes Recipient Signature: Yes Med Rec Note Co-signed by Attending: Coverage Notice Comment: [facility] 4. D[facility] Last DP export: 01/28/20 3:06 pm Patient Name: BRENT ORDONEZ Page [id number] at 0910 All edits/amendments must be made on the electronic document DICTATION DATE: 01/29/20 09 FOREST FIREFIGHTER: KENDALL 01/29/20 0910 RPT#: [id number] DC DATE:01/28/20 STATUS: DIS IN [facility] [address] [place] [address] END OF REPORT
== END 2020-01-28 16:18 | disposition home health service (06) | DRG 82 ==
LOC: D.ER 01:11 → D.ICU 05:20 → D.MS 05:20
PROVIDERS: Family Medicine; Neurological Surgery; ADMIT Family Medicine; ATTEND Family Medicine
DX: S02.109A Fracture of base of skull, unspecified side, initial encounter for closed fracture (principal); G93.6 Cerebral edema; S06.5X9A Traumatic subdural hemorrhage with loss of consciousness of unspecified duration, initial encounter; S02.119A Unspecified fracture of occiput, initial encounter for closed fracture; R58 Hemorrhage, not elsewhere classified